=== PATIENT | female | born 1970 | race Two or more races ===

== ENCOUNTER 2024-05-31 18:48 | Emergency (ER) | payer SELFPAY ==
[2024-05-31 19:31] VITALS: BP 196/95; PULSE 69; RESP 20; TEMP 36.3; O2SAT 100
[2024-05-31 22:30] VITALS: BP 203/90; PULSE 65; RESP 18; TEMP 36.6; O2SAT 99
--- NOTE | 2024-05-31 22:36 | PC.NURSE ---
Pt came up to desk stating she feels okay and is going to go home, she cannot wait any longer. Pt educated to return if symptoms worsen. Pt leaves in NAD.
== END 2024-05-31 23:42 | disposition left against medical advice (07) ==
DX: I10 Essential (primary) hypertension (principal)
CPT/HCPCS: 99199